=== PATIENT | male | born 1970 | race African-American/Black ===

== ENCOUNTER 2019-10-23 09:35 | Emergency (ER) | payer BC, OTHER ==
[2019-10-23 12:02] LABS: BLOOD UREA NITROGEN,BUN 15 mg/dL (7.0-18.0); CHLORIDE,CL 102 mmol/L (98-107); GLUCOSE RANDOM 99 mg/dL (74-106); POTASSIUM,K 4.6 mmol/L (3.5-5.1); SODIUM,NA 138 mmol/L (136-148)
[2019-10-23] MEDS ORDERED: Iopamidol 755 MG/ML 500 ML Multipack Bottle IVPUSH STA (12:18)
[2019-10-23] MEDS ORDERED: metroNIDAZOLE/Normal Saline 500 MG in Premix Bag 1 BAG IV ONE (12:41)
[2019-10-23] MEDS ORDERED: Ciprofloxacin in D5W 400 MG in Premix Bag 1 BAG IV SCH ×2 (12:45)
--- NOTE | 2019-10-23 13:01 | CT ---
CT abdomen and pelvis Technique: Multiple axial sections were obtained from above the dome of the diaphragm inferiorly through the pubic symphysis. Intravenous contrast was utilized. No oral contrast has been given. Findings: Visualized lung bases show nothing acute. Findings: Liver contains no focal parenchymal abnormality. Spleen appears within normal limits. Adrenal glands show no nodule. Pancreas is within normal limits. Gallbladder contains no calcified gallstones. Cyst noted within the right kidney measuring 3.1 cm in size. Kidneys otherwise appear within normal limits. Aorta shows no aneurysm. No retroperitoneal adenopathy or mesenteric abnormalities are seen. No pelvic mass or adenopathy is seen. Appendix not visualized with certainty. Small amount of air is seen within the lower perirectal soft tissues as well as asymmetric increased density within the subcutaneous fat along the left gluteal fold. No drainable abscess is seen. Impression: 1. Small amount of air within the inferior perirectal soft tissues presumably due to ulceration. 2. Asymmetric soft tissue density within the fat next to the gluteal fold on the left side. This is compatible with inflammatory change. 3. No drainable abscess is seen within the perirectal soft tissues. 4. Other findings believed to be incidental as noted above. Diagnostic code #3 This report was dictated in MDT
[2019-10-23] MEDS ORDERED: HYDROmorphone 1 MG/ML Syringe IVPUSH PRN (14:01)
[2019-10-23] MEDS ORDERED: Clindamycin Phosphate in D5W 900 MG in Premix Bag 1 BAG IV ONE ×2 (14:20)
[2019-10-23 14:30] VITALS: BP 118/60
--- NOTE | 2019-10-23 14:33 | PCM.HP.2 ---
H&P History of Present Illness - General Date of Service: 10/23/19 Source of Information: Patient History Limitations: Reports: No Limitations - History of Present Illness Initial Comments - Free Text/Narative: Patient is a 49 year old male with no past medical history who presents with 4 days of progressively worsening perianal pain. He states that sitting on his left side and trying to have a BM make the pain worse. He denies fevers, chills , nausea, vomiting, but feels bloated. He denies abdominal pain. He tried OTC magnesium citrate with no BM. He denies any trauma to the area or foreign bodies. He presented to the ER. His vitals were stable. WBC was 15.5 with a left shift of 80%. CT abdomen pelvis showed "small amount of air within the inferior perirectal soft tissues presumably due to ulceration. Asymmetric soft tissue density within the fat next to the gluteal fold on the left side compatible with inflammatory change." Perineum Pain Score (Numeric/FACES): 8 - Related Data Allergies/Adverse Reactions: Allergies Allergy/AdvReac Type Severity Reaction Status Date / Time No Known Allergies Allergy Verified 10/23/19 09:52 Home Medications: Home Meds . [No Known Home Meds] 12/24/15 [History] Past Medical History - Past Health History Medical/Surgical History: Denies Medical/Surgical History Social & Family History - Family History Family Medical History: Noncontributory - Tobacco Use Smoking Status *Q: Never Smoker - Recreational Drug Use Recreational Drug Use: No H&P Review of Systems - Review of Systems: Review Of Systems: Comprehensive ROS is negative, except as noted in HPI. Exam - Exam Exam: See Below - Vital Signs Vital Signs: Last Vital Signs Temp 36.8 C 10/23/19 09:52 Pulse 98 10/23/19 09:52 Resp 20 10/23/19 09:52 BP 108/72 10/23/19 09:52 Pulse Ox 97 10/23/19 09:52 Weight: 79.8 kg - Exam General: Alert, Oriented HEENT: Conjunctiva Clear, Mucosa Moist & Sophia, Posterior Pharynx Clear Neck: Supple Lungs: Clear to Auscultation, Normal Respiratory Effort Cardiovascular: Regular Rate, Regular Rhythm GI/Abdominal Exam: Soft, Non-Tender, No Mass, Distended Rectal (Males) Exam: Tenderness (left buttock and along the perianal area ), Other (No crepitus, but firm edematous tissue along the left gluteal area up to the perianal tissues. No definitive fluctuance palpated. Unable to peform a NAOMIE 2/2 pain) - Patient Data Lab Results Last 24 hrs: Laboratory Results - last 24 hr 10/23/19 10/23/19 10/23/19 Range/Units 11:15 11:15 11:15 WBC 15.54 H (4.0-11.0) K/uL RBC 4.72 (4.50-5.90) M/uL Hgb 15.2 (13.0-17.0) g/dL Hct 45.9 (38.0-50.0) % MCV 97.2 (80.0-98.0) fL MCH 32.2 H (27.0-32.0) pg MCHC 33.1 (31.0-37.0) g/dL RDW Std Deviation 47.4 (28.0-62.0) fl RDW Coeff of Tana 13 (11.0-15.0) % Plt Count 132 L (150-400) K/uL MPV 12.50 H (7.40-12.00) fL Neut % (Auto) 80.2 H (48.0-80.0) % Lymph % (Auto) 10.8 L (16.0-40.0) % Kay % (Auto) 8.6 (0.0-15.0) % Eos % (Auto) 0.3 (0.0-7.0) % Baso % (Auto) 0.1 (0.0-1.5) % Neut # (Auto) 12.5 H (1.4-5.7) K/uL Lymph # (Auto) 1.7 (0.6-2.4) K/uL Kay # (Auto) 1.3 H (0.0-0.8) K/uL Eos # (Auto) 0.1 (0.0-0.7) K/uL Baso # (Auto) 0.0 (0.0-0.1) K/uL Nucleated RBC % 0.0 /100WBC Nucleated RBCs # 0 K/uL ESR 11 (0-19) mm/hr Sodium 138 (136-148) mmol/L Potassium 4.6 (3.5-5.1) mmol/L Chloride 102 (98-107) mmol/L Carbon Dioxide 27.0 (21.0-32.0) mmol/L BUN 15 (7.0-18.0) mg/dL Creatinine 1.2 (0.8-1.3) mg/dL Est Cr Clr Drug Dosing 72.83 mL/min Estimated GFR (MDRD) > 60.0 ml/min Glucose 99 (74-106) mg/dL Calcium 8.8 (8.5-10.1) mg/dL C-Reactive Protein 10.10 H (0.00-0.90) mg/dL Result Diagrams: 10/23/19 11:15 10/23/19 11:15 Kai Results Last 24 hrs: Microbiology 10/23/19 11:15 Anaerobic Blood Culture - Final Blood - Venous - Lab Draw Sepsis Event Note - Evaluation Sepsis Screening Result: No Definite Risk - Focused Exam Vital Signs: Vital Signs Temp Pulse Resp BP Pulse Ox 10/23/19 09:52 36.8 C 98 20 108/72 97 Date Exam was Performed: 10/23/19 Time Exam was Performed: 14:27 - Problem List (1) Perianal erythema SNOMED Code(s): 202301727, 690454886 ICD Code: L53.8 - OTHER SPECIFIED ERYTHEMATOUS CONDITIONS Status: Acute Current Visit: Yes (2) Perianal cellulitis SNOMED Code(s): 433411007 ICD Code: K61.0 - ANAL ABSCESS Status: Acute Current Visit: Yes Problem List Initiated/Reviewed/Updated: Yes Orders Last 24hrs: Active Orders 24 hr Category Date Time Status CULTURE BLOOD [BC] Stat Lab 10/23/19 11:05 Received CULTURE BLOOD [BC] Stat Lab 10/23/19 11:15 Results Ciprofloxacin in D5W [Cipro in D5W 400 MG/200 ML] 400 Med 10/23/19 12:45 Active mg Premix Bag 1 bag IV Q12H Clindamycin Phosphate in D5W [Cleocin in D5W] 900 mg Med 10/23/19 14:20 Active Premix Bag 1 bag IV ONETIME HYDROmorphone [Dilaudid] Med 10/23/19 14:01 Active 0.5 - 1 mg IVPUSH Q1H PRN Blood Culture x2 Reflex Set [OM.PC] Stat Oth 10/23/19 10:43 Ordered Medication Orders Hydromorphone HCl (Dilaudid) 0.5 - 1 mg IVPUSH Q1H PRN PRN Reason: Pain Last Admin: 10/23/19 14:11 Dose: 1 mg Ciprofloxacin/Dextrose 400 mg/ (Premix) 200 mls @ 200 mls/hr IV Q12H KAROLYN Last Admin: 10/23/19 14:11 Dose: 200 mls/hr Clindamycin Phosphate 900 mg/ (Premix) 50 mls @ 100 mls/hr IV ONETIME ONE Stop: 10/23/19 14:49 Last Admin: 10/23/19 14:22 Dose: 100 mls/hr Assessment/Plan Comment:: The patient has a moderate to large area of edema and tenderness along the left buttock extending into the anoderm. I do not palpate an area of fluctuance for drainage. I reviewed the CT images myself and do see some free air along the susan-rectal area with a significant amount of associated inflammatory changes. He doesn't appear to be septic like I would expect with necrotizing fascitis. However, with free air and no clear perianal abscess collection, I feel he should be evaluated by a colorectal surgeon or at least be seen in a facility with better ICU capabilities in case this is a necrotizing infection. I visited with my partner Dr Moyer who reviewed the images and agreed with this. Patient will be transferred to [facility] for further cares. In the meantime, continue IVF, broad spectrum antibiotic coverage, and pain control.
[2019-10-23] MEDS ORDERED: Sodium Chloride 0.9% 1,000 ML IV ONE (14:57)
--- NOTE | 2019-10-23 14:59 | EDM.PDOC ---
ED HPI GENERAL MEDICAL PROBLEM - General Chief Complaint: Gastrointestinal Problem Stated Complaint: LF LEG PAIN Time Seen by Provider: 10/23/19 09:43 Source of Information: Reports: Patient History Limitations: Reports: No Limitations - History of Present Illness INITIAL COMMENTS - FREE TEXT/NARRATIVE: HPI 49-year-old male presents with left in anal verge tenderness, swelling, and mild warmth of approximately 7 days duration with secondary pain on stooling which is led to 5 days of constipation. No fevers, chills, or further symptoms. M/S/F/SocHx notable for: please see HPI; remainder reviewed with patient and in chart. ROS: Negative constitutional, eye, cardiovascular, pulmonary, GI, , MSK, skin , neurologic, psychiatric, endocrine unless noted in the HPI. Exam HR 98, RR 20, BP 108/72, T 36.8C, SaO2 97% on RA. Gen: Pleasant, non-toxic appearing, resting comfortably. HEENT: NC, AT, PEERL, EOMI. Resp: Clear to auscultation bilaterally, normal work of breathing, no accessory muscle usage. Card: Regular rate and rhythm with no murmurs, rubs, or gallops, extremities warm and well perfused. GI: Non-tender to palpation throughout all quadrants, no focal tenderness at McBurney's point, negative Barbosa's sign, non-distended, no rebound or guarding. : visually normal male external genitalia, left buttock immediately lateral to the intra-gluteal cleft and anus with tenderness, mild warmth, and firm indurated swelling, NAOMIE with patient unable to tolerate due to discomfort. Unable to palpate inside the anal verge. MSK: No visible deformities, strength and tone without visually appreciable deficit. Skin: Normal color with no visible lesions. Neuro: alert and oriented 3, no facial asymmetry, vision and hearing WNL. Psych: Mood and affect appropriate. Labs / Imaging: WBC 15.5, HB 15.2, sodium 138, potassium 4.6, CRP 10.1, ESR 11. CT abdomen/pelvis: 1. Small amount of air within the inferior perirectal soft tissues presumably due to ulceration. 2. Asymmetric soft tissue density within the fat next to the gluteal fold on the left side. This is compatible with inflammatory change. 3. No drainable abscess is seen within the perirectal soft tissues. 4. Other findings believed to be incidental as noted above. MDM Previous chart, nursing note, labs, imaging, and vitals reviewed. A: 49-year-old male presents with left in anal verge tenderness, swelling, and mild warmth of approximately 7 days duration with secondary pain on stooling which is led to 5 days of constipation. DDx: kristel's gangrene, abscess, cellulitis, constipation, sepsis. Evaluation: exam consistent with infection, patient with leukocytosis, no clear evidence of significant systemic involvement based upon overall appearance and vital sign stability as well as duration of symptoms. Imaging concerning for gas , Dr. Oliveros, the general surgeon was consulted, Dr. Oliveros evaluated the patient in person. Recommended transfer to [place] for colorectal evaluation. Patient was accepted in transfer by Dr. Medrano, the ED physician on duty. Patients case was discussed with the colorectal surgeon in [place]. As the patient is hemodynamically stable he is transferred by ground ALS. Hydromorphone p.r.n. for pain control, patient was given ciprofloxacin and Flagyl, after noting gas on imaging clindamycin was added. Blood cultures were drawn prior to antibiotics. Impression: perirectal abscess with gas. (please reference below for remainder of encounter information) Critical Care Time Organ system(s): Cardiopulmonary, vascular, OPTICAL INSTRUMENT REPAIRER, Renal Intervention: Assessment of the patient, interpretation of studies, communication related to patient care. Time: 30 minutes were spent directly related to patient care exclusive of separately billed procedures Perineum Pain Score (Numeric/FACES): 8 - Related Data Allergies Allergy/AdvReac Type Severity Reaction Status Date / Time No Known Allergies Allergy Verified 10/23/19 09:52 Home Meds: Home Meds . [No Known Home Meds] 12/24/15 [History] Past Medical History - Past Health History Medical/Surgical History: Denies Medical/Surgical History Social & Family History - Family History Family Medical History: Noncontributory - Tobacco Use Smoking Status *Q: Never Smoker - Recreational Drug Use Recreational Drug Use: No ED ROS PEDIATRIC - Review of Systems Review Of Systems: See Below ED EXAM, GENERAL (PEDS) - Physical Exam Exam: See Below Course - Vital Signs Last Recorded V/S: Last Vital Signs Temp 36.3 C 10/23/19 14:30 Pulse 68 10/23/19 14:30 Resp 16 10/23/19 14:30 BP 118/60 10/23/19 14:30 Pulse Ox 96 10/23/19 14:30 - Orders/Labs/Meds Orders: Active Orders 24 hr Category Date Time Status CULTURE BLOOD [BC] Stat Lab 10/23/19 11:05 Received CULTURE BLOOD [BC] Stat Lab 10/23/19 11:15 Results Ciprofloxacin in D5W [Cipro in D5W 400 MG/200 ML] 400 Med 10/23/19 12:45 Active mg Premix Bag 1 bag IV Q12H HYDROmorphone [Dilaudid] Med 10/23/19 14:01 Active 0.5 - 1 mg IVPUSH Q1H PRN Sodium Chloride 0.9% [Normal Saline] 1,000 ml Med 10/23/19 14:57 Ordered IV .Bolus Blood Culture x2 Reflex Set [OM.PC] Stat Oth 10/23/19 10:43 Ordered Medication Orders Hydromorphone HCl (Dilaudid) 0.5 - 1 mg IVPUSH Q1H PRN PRN Reason: Pain Last Admin: 10/23/19 14:11 Dose: 1 mg Ciprofloxacin/Dextrose 400 mg/ (Premix) 200 mls @ 200 mls/hr IV Q12H KAROLYN Last Admin: 10/23/19 14:11 Dose: 200 mls/hr Sodium Chloride (Normal Saline) 1,000 mls @ 1,000 mls/hr IV .Bolus ONE Stop: 10/23/19 15:56 Labs: Laboratory Tests 10/23/19 10/23/19 10/23/19 Range/Units 11:15 11:15 11:15 WBC 15.54 H (4.0-11.0) K/uL RBC 4.72 (4.50-5.90) M/uL Hgb 15.2 (13.0-17.0) g/dL Hct 45.9 (38.0-50.0) % MCV 97.2 (80.0-98.0) fL MCH 32.2 H (27.0-32.0) pg MCHC 33.1 (31.0-37.0) g/dL RDW Std Deviation 47.4 (28.0-62.0) fl RDW Coeff of Tana 13 (11.0-15.0) % Plt Count 132 L (150-400) K/uL MPV 12.50 H (7.40-12.00) fL Neut % (Auto) 80.2 H (48.0-80.0) % Lymph % (Auto) 10.8 L (16.0-40.0) % Cabell % (Auto) 8.6 (0.0-15.0) % Eos % (Auto) 0.3 (0.0-7.0) % Baso % (Auto) 0.1 (0.0-1.5) % Neut # (Auto) 12.5 H (1.4-5.7) K/uL Lymph # (Auto) 1.7 (0.6-2.4) K/uL Cabell # (Auto) 1.3 H (0.0-0.8) K/uL Eos # (Auto) 0.1 (0.0-0.7) K/uL Baso # (Auto) 0.0 (0.0-0.1) K/uL Nucleated RBC % 0.0 /100WBC Nucleated RBCs # 0 K/uL ESR 11 (0-19) mm/hr Sodium 138 (136-148) mmol/L Potassium 4.6 (3.5-5.1) mmol/L Chloride 102 (98-107) mmol/L Carbon Dioxide 27.0 (21.0-32.0) mmol/L BUN 15 (7.0-18.0) mg/dL Creatinine 1.2 (0.8-1.3) mg/dL Est Cr Clr Drug Dosing 72.83 mL/min Estimated GFR (MDRD) > 60.0 ml/min Glucose 99 (74-106) mg/dL Calcium 8.8 (8.5-10.1) mg/dL C-Reactive Protein 10.10 H (0.00-0.90) mg/dL Meds: Medications Generic Name Dose Route Start Last Admin Trade Name Freq PRN Reason Stop Dose Admin Hydromorphone HCl 0.5 - 1 mg 10/23/19 14:01 10/23/19 14:11 Dilaudid IVPUSH 1 mg Q1H PRN Administration Pain Ciprofloxacin/Dextrose 400 mg/ 200 mls @ 200 mls/hr 10/23/19 12:45 10/23/19 14:11 Premix IV 200 mls/hr Q12H KAROLYN Administration Sodium Chloride 1,000 mls @ 1,000 mls/hr 10/23/19 14:57 Normal Saline IV 10/23/19 15:56 .Bolus ONE Discontinued Medications Generic Name Dose Route Start Last Admin Trade Name Freq PRN Reason Stop Dose Admin Metronidazole 500 mg/ Premix 100 mls @ 100 mls/hr 10/23/19 12:41 10/23/19 13: 39 IV 10/23/19 13:40 100 mls/hr ONETIME ONE Administration Clindamycin Phosphate 450 mg/ 53 mls @ 106 mls/hr 10/23/19 14:01 10/23/19 14: 17 Sodium Chloride IV 10/23/19 14:30 Not Given ONETIME ONE Clindamycin Phosphate 900 mg/ 50 mls @ 100 mls/hr 10/23/19 14:20 10/23/19 14: 22 Premix IV 10/23/19 14:49 100 mls/hr ONETIME ONE Administration Iopamidol 90 ml 10/23/19 12:18 10/23/19 12:22 Isovue Multipack-370 (76%) IVPUSH 10/23/19 12:19 90 ml ONETIME STA Administration Departure - Departure Time of Disposition: 14:58 Disposition: DC/Tfer to Other 70 Clinical Impression: Perianal abscess - Discharge Information Referrals: PCP,None [Primary Care Provider] - Sepsis Event Note - Evaluation Sepsis Screening Result: No Definite Risk - Focused Exam Vital Signs: Vital Signs Temp Pulse Resp BP Pulse Ox 10/23/19 14:30 36.3 C 68 16 118/60 96 10/23/19 13:25 37.0 C 18 95 10/23/19 09:52 36.8 C 98 20 108/72 97 Date Exam was Performed: 10/23/19 Time Exam was Performed: 14:58 - My Orders Last 24 Hours: My Active Orders 10/23/19 10:43 Blood Culture x2 Reflex Set [OM.PC] Stat 10/23/19 11:05 CULTURE BLOOD [BC] Stat 10/23/19 11:15 CULTURE BLOOD [BC] Stat 10/23/19 12:45 Ciprofloxacin in D5W [Cipro in D5W 400 MG/200 ML] 400 mg Premix Bag 1 bag IV Q12H 10/23/19 14:01 HYDROmorphone [Dilaudid] 0.5 - 1 mg IVPUSH Q1H PRN 10/23/19 14:57 Sodium Chloride 0.9% [Normal Saline] 1,000 ml IV .Bolus - Assessment/Plan Last 24 Hours: My Active Orders 10/23/19 10:43 Blood Culture x2 Reflex Set [OM.PC] Stat 10/23/19 11:05 CULTURE BLOOD [BC] Stat 10/23/19 11:15 CULTURE BLOOD [BC] Stat 10/23/19 12:45 Ciprofloxacin in D5W [Cipro in D5W 400 MG/200 ML] 400 mg Premix Bag 1 bag IV Q12H 10/23/19 14:01 HYDROmorphone [Dilaudid] 0.5 - 1 mg IVPUSH Q1H PRN 10/23/19 14:57 Sodium Chloride 0.9% [Normal Saline] 1,000 ml IV .Bolus
[2019-10-23 15:08] VITALS: PULSE 54
== END 2019-10-23 15:27 | disposition other institution (70) ==
LOC: MW.ED 09:35
DX: K61.0 Anal abscess (principal)
CPT/HCPCS: 36415; 74177; 80048; 85025; 85652; 86140; 87040; 96365; 96367; 96368; 96375; 99285; J0744; J1170; J3490; J7030; Q9967; 99291

== ENCOUNTER 2023-01-24 15:42 | Emergency (ER) | payer OTHER ==
[2023-01-24] MEDS ORDERED: Sodium Chloride 0.9% 1,000 ML IV ONE (16:43)
[2023-01-24] MEDS ORDERED: Dicyclomine 10 MG Cap PO ONE (16:49)
[2023-01-24] MEDS ORDERED: Ketorolac 30 MG/ML SDV IVPUSH ONE (16:49)
[2023-01-24 16:58] LABS: BASOPHILS PERCENT AUTO 0.3 % (0.0-1.5); EOSINOPHILS ABSOLUTE AUTO 0.1 K/uL (0.0-0.7); EOSINOPHILS PERCENT AUTO 1.7 % (0.0-7.0); HEMATOCRIT 42.3 % (38.0-50.0); HEMOGLOBIN 14.2 g/dL (13.0-17.0); LYMPHOCYTES ABSOLUTE AUTO 2.5 K/uL (0.6-2.4); LYMPHOCYTES PERCENT AUTO 42.1 % (16.0-40.0); MEAN CORPUSCULAR HEMOGLOBIN 31.7 pg (27.0-32.0); MEAN CORPUSCULAR HGB CONC 33.6 g/dL (31.0-37.0); MEAN CORPUSCULAR VOLUME 94.4 fL (80.0-98.0); MONOCYTES ABSOLUTE AUTO 0.5 K/uL (0.0-0.8); NEUTROPHILS ABSOLUTE AUTO 2.8 K/uL (1.4-5.7); NEUTROPHILS PERCENT AUTO 46.9 % (48.0-80.0); PLATELET COUNT,PLT 167 K/uL (150-400); RED BLOOD CELL COUNT 4.48 M/uL (4.50-5.90); WHITE BLOOD CELL COUNT,WBC 5.91 K/uL (4.0-11.0)
[2023-01-24 17:29] LABS: ALBUMIN 3.6 g/dL (3.4-5.0); BILIRUBIN TOTAL 0.2 mg/dL (0.2-1.0); CALCIUM 8.8 mg/dL (8.5-10.1); CARBON DIOXIDE,CO2 30.1 mmol/L (21.0-32.0); CREATININE 0.9 mg/dL (0.8-1.3); EST CRCL DRUG DOSING (CG) 99.94 mL/min; POTASSIUM,K 4.4 mmol/L (3.5-5.1); PROTEIN TOTAL,TP 7.3 g/dL (6.4-8.2)
[2023-01-24 19:29] LABS: APPEARANCE,URINE CLEAR; BILIRUBIN,URINE NEGATIVE (NEGATIVE); COLOR,URINE YELLOW; GLUCOSE,URINE NEGATIVE (NEGATIVE); KETONES,URINE NEGATIVE (NEGATIVE); LEUKOCYTE ESTERASE,URINE NEGATIVE (NEGATIVE); NITRITE,URINE NEGATIVE (NEGATIVE); OCCULT BLOOD,URINE NEGATIVE (NEGATIVE); PROTEIN,URINE NEGATIVE (NEGATIVE); UROBILINOGEN,URINE 0.2 EU/dL (<2.0)
[2023-01-24 20:21] VITALS: BP 129/63; PULSE 65
== END 2023-01-24 20:00 | disposition home or self-care (01) ==
LOC: MW.ED 15:42
DX: R10.30 Lower abdominal pain, unspecified (principal)
CPT/HCPCS: 36415; 74019; 80053; 81003; 83690; 85025; 96361; 96374; 99284; A9270; J1885; J7030